=== PATIENT | female | born 1970 | race Caucasian/White ===

== ENCOUNTER 2024-04-22 13:38 | Emergency (ER) | payer OTHER ==
[2024-04-22 13:50] VITALS: TEMP 97.6; BMI 19.8
[2024-04-22 14:55] LABS: BASO % 0.2 % (0-2.0); EOS % 0.4 % (0-4.5); HEMATOCRIT 39.7 % (32.4-45.2); HEMOGLOBIN 13.7 GM/dL (10.7-15.3); LYMPH % 12.9 % (8-40); MCH 31.7 pg (25.7-33.7); MCHC 34.4 g/dl (32.0-36.0); MEAN CELL VOLUME 92.1 fl (80-96); MEAN PLT VOLUME 8.1 fl (7.5-11.1); MONO % 2.3 % (3.8-10.2); NEUT % 84.2 % (42.8-82.8); PLATELET COUNT 315 10^3/uL (134-434); RBC 4.31 M/mm3 (3.60-5.2); WHITE BLOOD COUNT 9.8 K/mm3 (4.0-10.0)
[2024-04-22 14:57] LABS: VENOUS BASE EXCESS 0.6 mmol/L (-2-2); VENOUS O2 SATURATION 73.6 % (70-80); VENOUS PCO2 41.1 mmHg (38-52); VENOUS PH 7.408 (7.310-7.410)
[2024-04-22 15:20] LABS: POTASSIUM 3.9 mmol/L (3.5-5.1)
[2024-04-22 15:23] LABS: CALCIUM 9.6 mg/dL (8.5-10.1)
[2024-04-22 15:27] LABS: CREATININE 0.7 mg/dL (0.55-1.3)
[2024-04-22 15:28] LABS: TOT PROT 7.8 g/dl (6.4-8.2)
[2024-04-22 15:30] LABS: BILIRUBIN,TOTAL 0.6 mg/dL (0.2-1)
[2024-04-22] MEDS: BENZONATATE 200 MG CAPSULE PO ONE (17:45)
[2024-04-22] MEDS: guaiFENesin 200 MG/10 ML 10 ML UNIT-DOSE CUPS PO ONE (17:46)
[2024-04-22] MEDS ORDERED: guaiFENesin/CODEINE 10 ML UNIT-DOSE CUPS ONE (17:47)
[2024-04-22 18:35] VITALS: BP 138/70; PULSE 69; RESP 18
== END 2024-04-22 19:43 | disposition home or self-care (01) ==
LOC: JER 13:38
DX: R05.9 Cough, unspecified (principal); R06.02 Shortness of breath; R07.9 Chest pain, unspecified; Z20.822 Contact with and (suspected) exposure to COVID-19
CPT/HCPCS: 0241U-QW; 36415; 71046-TC-FY; 71260-TC; 80053; 82803; 84439; 84443; 84484; 85025; 85379; 93005; 93010; 99285-25